=== PATIENT | female | born 2000 | race Caucasian/White ===

== ENCOUNTER 2024-08-24 20:20 | Inpatient (IN) | payer MEDICAID, OTHER ==
[~2024-08-24] VITALS: Ht 160 cm; Wt 60.9 kg
[~2024-08-24 20:20] MED LIST: HOLTER MONITOR XX; HYDR-3363 PO
[2024-08-25] MEDS ORDERED: MOM 30 ML SUSPENSION UDC PO PRN (00:10)
[2024-08-25 06:22] VITALS: BP 107/61; TEMP 97.3; O2SAT 100
[2024-08-25] MEDS: LORazepam 0.5 MG TAB PO ONE (10:21)
[2024-08-25] MEDS ORDERED: SUMA100T2 PO (12:18)
[2024-08-25] MEDS ORDERED: HYDR-3363 PO (12:18)
[2024-08-25] MEDS ORDERED: CETI-24 PO (12:18)
[2024-08-25] MEDS ORDERED: HOME MED LIST COMPLETE! XX SCH (12:20)
[2024-08-25 15:03] VITALS: BP 147/74; TEMP 98.9; O2SAT 95
[2024-08-25] MEDS: SERTRALINE HCL 25 MG TABLET PO ONE (16:47)
[2024-08-25 20:00] VITALS: BP 132/88; TEMP 97.9; O2SAT 100
[2024-08-25] MEDS: MAALOX 30 ML SUSP *UDC PO PRN (20:29)
[2024-08-25] MEDS: ONDANSETRON 4MG ORAL DISINTEGRATING TAB PO ONE (20:51)
[2024-08-25 21:00] VITALS: BP 117/73; TEMP 98.2; O2SAT 96
[2024-08-26 06:58] VITALS: BP 103/57; TEMP 98.6; O2SAT 97
[2024-08-26] MEDS: ONDANSETRON 4MG ORAL DISINTEGRATING TAB PO PRN (11:06)
[2024-08-26] MEDS: SERTRALINE HCL 50 MG TAB PO SCH (11:37)
[2024-08-26] MEDS: PILL CUTTER 1 EACH XX PRN (12:12)
[2024-08-26 15:19] VITALS: BP 113/62; TEMP 97.5; O2SAT 98
[2024-08-26] MEDS: traZODone 50 MG TAB PO PRN (20:03)
[2024-08-27 06:11] VITALS: BP 106/56; TEMP 98; O2SAT 100
[2024-08-27 14:00] VITALS: BP 92/57; TEMP 98.4; TEMP 98.7; O2SAT 67; O2SAT 97
[2024-08-27 18:42] VITALS: BP 130/67
[2024-08-28] MEDS: IBUPROFEN 400 MG TAB PO PRN (06:59)
[2024-08-28 09:00] VITALS: BP 123/73; TEMP 97; O2SAT 99
[2024-08-28 14:30] VITALS: BP 117/62; TEMP 98.3; O2SAT 98
[2024-08-28] MEDS: ACETAMINOPHEN 325 MG TAB PO PRN (14:45)
[2024-08-29 06:04] VITALS: BP 118/71; TEMP 97.1; O2SAT 100
[2024-08-29] MEDS: SERTRALINE HCL 25 MG TABLET PO SCH (08:50)
[2024-08-29] MEDS ORDERED: TRAZ-252 PO (10:07)
[2024-08-29] MEDS ORDERED: SERT25TA21 PO (10:07)
[2024-08-29] MEDS ORDERED: ABIL1TAB13 PO (10:07)
[2024-08-29 16:23] VITALS: BP 127/66; TEMP 98.7; O2SAT 98
== END 2024-08-29 18:07 | disposition home or self-care (01) | DRG 751 ==
LOC: M ED 20:20 → M ED INP 08-25 00:08 → M PSY 08-25 03:07
PROVIDERS: ADMIT Psychiatry & Neurology Neurology; ATTEND Psychiatry & Neurology Neurology
DX: F32.3 Major depressive disorder, single episode, severe with psychotic features (principal); R45.851 Suicidal ideations; F43.10 Post-traumatic stress disorder, unspecified; F12.90 Cannabis use, unspecified, uncomplicated; Z71.51 Drug abuse counseling and surveillance of drug abuser; Z62.810 Personal history of physical and sexual abuse in childhood; R11.10 Vomiting, unspecified; Z91.410 Personal history of adult physical and sexual abuse; Z91.52 Personal history of nonsuicidal self-harm; Z79.899 Other long term (current) drug therapy; Z81.1 Family history of alcohol abuse and dependence; Z59.00 Homelessness unspecified; Z96.642 Presence of left artificial hip joint; Z87.820 Personal history of traumatic brain injury; Z59.86 Financial insecurity; Z63.8 Other specified problems related to primary support group